=== PATIENT | male | born 1990 | race African-American/Black ===

== ENCOUNTER 2019-11-23 16:38 | Emergency (ER) | payer MEDICAID ==
[~2019-11-23] VITALS: Ht 180.3 cm; Wt 70.5 kg
[2019-11-23 16:50] VITALS: BP 194/92
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
== END 2019-11-23 18:04 | disposition left against medical advice (07) ==
LOC: ED 17:40
DX: S82.61XA Displaced fracture of lateral malleolus of right fibula, initial encounter for closed fracture (principal); S82.51XA Displaced fracture of medial malleolus of right tibia, initial encounter for closed fracture; S01.511A Laceration without foreign body of lip, initial encounter; Y08.89XA Assault by other specified means, initial encounter; Y93.89 Activity, other specified; Y92.59 Other trade areas as the place of occurrence of the external cause; Y99.8 Other external cause status
CPT/HCPCS: 99283

== ENCOUNTER 2019-11-23 18:38 | Emergency (ER) | payer MEDICAID ==
[~2019-11-23] VITALS: Ht 182.9 cm; Wt 80.0 kg
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
[2019-11-23 18:46] VITALS: BP 166/86
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
--- NOTE | 2019-11-23 19:09 | NUR ---
REPORT FROM DARSHAN MARINA. FIRST CONTACT WITH PT. PT RESTING IN [facility], AGITATED BUT COOPERATIVE AT THIS TIME. FALL PRECAUTIONS REVIEWED WITH PT WHO AGREES NOT TO GET UP OR LEAVE WITHOUT NOTIFYING RN. CALL LIGHT WITHIN REACH. L ANKLE DEFORMITY NOTED W SIGNIFICANT SWELLING. +DISTAL PULSES. PT UPDATED TO POC (RESULTS/RECHECK) AND DEMONSTRATES UNDERSTANDING. Addendum: 11/23/19 at 3 by JUDITH SIGNIFICANT SWELLING, NO DEFORMITY NOTED*. +DISTAL PULSES
--- NOTE | 2019-11-23 19:52 | NUR ---
POC IS DC. IV DC'D. PT OFF MONITORING
--- NOTE | 2019-11-23 20:23 | NUR ---
SPLINT PLACED BY TECH. CRUTCHES PROVIDED. DC EDUCATION REVIEWED WITH PT WHO WAS LARGELY DISINTERESTED IN EDUCATION/POC.
== END 2019-11-23 20:56 | disposition home or self-care (01) ==
LOC: ED 18:45
DX: S82.51XA Displaced fracture of medial malleolus of right tibia, initial encounter for closed fracture (principal); S82.61XA Displaced fracture of lateral malleolus of right fibula, initial encounter for closed fracture; S01.511A Laceration without foreign body of lip, initial encounter; S09.90XA Unspecified injury of head, initial encounter; R55 Syncope and collapse; R00.0 Tachycardia, unspecified; Y08.89XA Assault by other specified means, initial encounter; Y93.89 Activity, other specified; Y92.59 Other trade areas as the place of occurrence of the external cause; Y99.8 Other external cause status
CPT/HCPCS: 29515; 70450; 70486; 93005; 99285